=== PATIENT | female | born 1995 | race Caucasian/White ===

== ENCOUNTER 2021-08-12 16:32 | Emergency (ER) | payer OTHER, SELFPAY ==
[2021-08-12 16:44] VITALS: BP 111/76; PULSE 87; RESP 18; TEMP 36.7; O2SAT 98; BMI 31.5
--- NOTE | 2021-08-12 17:17 | ED_ITS ---
HPI - Eye Problem General: Chief complaint: Eye Problems Stated complaint: chemical in right eye Time Seen by Provider: 08/12/21 17:10 History of Present Illness: Presents for a work comp injury. Patient had some splashed up in her right eye while at work today she said it could have been a child spit are chemical. She did flush her eye for 5 to 10 minutes with water and her eyes feeling much better now. Implosion instructed come here to be checked out. Associated symptoms: Denies fever(s), headache(s), nausea or vomiting Review of Systems Narrative: Possible child spit are chemical splashed into her right eye earlier today at work. Patient irrigated her eye she feels much better now. Const: Denies: fever(s), chills or body aches Eyes: Reports: eye discomfort (eydiscomfort is now gone, patient irrigated I for 5 to 10 minutes with wate) ENMT: Denies: throat pain Card: Denies: chest pain Resp: Denies: dyspnea GI: Denies: abdominal pain, nausea or vomiting Skin/Breast: Denies: rash Neuro: Denies: headache(s) Psych: Denies: depression or suicidal ideation PFSH ED PFSH: Social History Smoking and tobacco status: never smoked Alcohol intake: current Physical Exam Const: COMMON NORMALS: no acute distress and patient oriented x3 Eye: COMMON NORMALS: Equal, round and reactive pupils present and conjunctivae normal EYELID: eyelids normal CONJUNCTIVA: Yes conjunctivae normal SCLERA: sclerae normal PUPIL: Yes Equal, round and reactive pupils present Resp: COMMON NORMALS: normal respiratory effort Neuro: COMMON NORMALS: patient oriented x3 Course Vital Signs: Vital signs: Vital Signs Temperature 98.0 F 08/12/21 16:44 Pulse Rate 87 08/12/21 16:44 Respiratory Rate 18 08/12/21 16:44 Blood Pressure 111/76 08/12/21 16:44 Pulse Oximetry 98 08/12/21 16:44 MDM - Eye Problem Medical Decision Making Possible chemical exposure are spit to the right eye while at work today. This is a work comp and work comp form was filled out. There was no evidence of any damage to the eye patient is not having problems seeing and then there is no redness. Patient did irrigate eye at work for 5 to 10 minutes with water. Patient has no complaints of discomfort presently. Discharge Plan Discharge Patient Disposition: Home Clinical Impression: Chemical exposure of eye Condition: Stable Prescriptions: New Zaditor 0.025 % (0.035 %) drops 1 drp ophthalmic (eye) BID Qty: 5 0RF Rx Instructions: administer at least 8 hours apart No Action bupropion HCl 75 mg tablet 75 mg PO BID 25 Days Qty: 50 1RF Rx Instructions: first 2 weeks take once daily, then can increase to 1 morning and 1 aft ernoon. Discharge Orders: Discharge ED (Routine); Ordered 08/12/21 Ordered By: Korey Mccarthy Referrals: Erum Nam MD [Primary Care Provider] - Discharge Diet: Usual diet Discharge Activity: Resume usual activity Patient Instructions: Chemical Eye Garcia (ED) Activity Restrictions/Additional Instructions: Follow-up with your work comp provider as necessary. Coding Level of Care Code ED Jockey Room Custodian for Meghan Burton
== END 2021-08-12 17:28 | disposition home or self-care (01) ==
PROVIDERS: Emergency Provider Nurse Practitioner Family; PCP Family Medicine
DX: Z77.098 Contact with and (suspected) exposure to other hazardous, chiefly nonmedicinal, chemicals (principal)
CPT/HCPCS: 99281

== ENCOUNTER 2022-05-20 14:45 | Outpatient (CLI) | payer BC, MEDICAID, SELFPAY ==
--- NOTE | 2022-05-20 | US_ITS ---
WS: [id number] EARLY OBSTETRICAL ULTRASOUND (<14 WEEKS). HISTORY: NORMAL ENCOUNTER 1ST TRIMESTER COMPARISON: None available. Single intrauterine gestational sac is identified. Cardiac activity at 118 BPM. Creswell-rump length ramses sures 0.7 cm which corresponds to a gestation of 6w3d. Normal-appearing yolk sac and amnion demonstra ronaldo. No subchorionic hemorrhage. No free fluid. Normal size ovaries with no mass. US/US OB <= 14 weeks fetus [id number] IMPRESSION: 1. Single intrauterine gestation of 6 weeks 6 days with an EDC of 01/07/2023. 2. Normal cardiac activity.
== END 2022-05-20 14:46 | disposition home or self-care (01) ==
LOC: RAD 14:51
PROVIDERS: PCP Family Medicine; Visit Provider Family Medicine
DX: Z34.01 Encounter for supervision of normal first pregnancy, first trimester (principal)
CPT/HCPCS: 76801

== ENCOUNTER 2022-08-20 14:45 | Outpatient (CLI) | payer BC, MEDICAID, SELFPAY ==
--- NOTE | 2022-08-20 15:01 | US_ITS ---
WS: [id number] OBSTETRICAL ULTRASOUND COMPLETE HISTORY: ANATOMY CHECK COMPARISON: 05/20/2022 Single intrauterine gestation in breech presentation. Cervix is Closed and normal length. Cervical length is 4.9 cm. Normal amount of amniotic fluid surrounds the fetus. Placenta: Posterior, no previa or abruption. Placenta grade 1 Heart: 129 BPM. Four chambers are identified. RIGHT and LEFT outflow tracts are unremarkable. Anatomy: Intracranial structures and spine are normal. kidneys, stomach and urinary bladd er are unremarkable. Abdominal wall, three-vessel cord and cord insertion site are normal. 4 extremities are present. profile: Unremarkable. Gender: Male. measurements: BPD = 4.6 cm = 20w0d; HC = 17.7 cm = 20w1d; AC = 15.1 cm = 20w2d; FL = 3.3 cm = 20w2d; EFW: 346 g. Not available. Biometry is internally concordant. AGA by ultrasound: 20w1d GREYSON by ultrasound: 01/06/2023 US/US OB >= 14 weeks fetus [id number] IMPRESSION: 1. Single intrauterine gestation of 20w1d with an GREYSON of 01/06/2023. Appropria te growth since the first trimester ultrasound. 2. Unremarkable screening survey of anatomy.
== END 2022-08-20 14:46 | disposition home or self-care (01) ==
LOC: RAD 14:46
PROVIDERS: PCP Family Medicine; Visit Provider Family Medicine
DX: Z34.92 Encounter for supervision of normal pregnancy, unspecified, second trimester (principal); Z3A.20 20 weeks gestation of pregnancy
CPT/HCPCS: 76805

== ENCOUNTER 2022-11-30 09:44 | Outpatient (CLI) | payer BC, MEDICAID, SELFPAY ==
--- NOTE | 2022-11-30 09:51 | US_ITS ---
WS: [id number] LIMITED OBSTETRICAL ULTRASOUND HISTORY: GROWTH CHECK/UTERINE SIZE-DATE DISCREPANCY-3RD TRIMESTER COMPARISON: 08/20/2022 and 05/20/2022 Presentation: Vertex. Cervix: Not imaged. Placenta: Anterior and fundal, no previa or abruption. Grade: 1 HEART: FHR of 122 BPM. measurements: BPD = 8.6 cm = 34w5d; 58th percentile HC = 30.7 cm = 34w2d; 14th percentile AC = 30.9 cm = 34w6d; 68th percentile FL = 6.8 cm = 35w0d; 55th percentile DIANA: 7.7 cm, single deep vertical pocket 3.1 cm. EFW: 2520 g; 67th percentile AGA by ultrasound: 34w5d GREYSON by ultrasound: 01/06/2023 US/[place] [id number] IMPRESSION: 1. Single intrauterine gestation of 34 weeks 5 days with an EDC of 01/06/2023. G rowth of the fetus appears appropriate since the first trimester ultrasound of 05/20/2022. 2. No growth restriction is evident. 3. Normal amniotic fluid. 4. Grade 1 placenta.
== END 2022-11-30 09:45 | disposition home or self-care (01) ==
PROVIDERS: PCP Family Medicine; Visit Provider Family Medicine
DX: O26.843 Uterine size-date discrepancy, third trimester (principal); Z3A.34 34 weeks gestation of pregnancy
CPT/HCPCS: 76816

== ENCOUNTER 2022-12-29 19:20 | Outpatient (CLI) | payer BC, MEDICAID, SELFPAY ==
[2022-12-29 19:30] VITALS: BMI 33.7
[2022-12-29 19:45] VITALS: BP 134/82; PULSE 78; RESP 17; TEMP 36.9
[2022-12-29 19:47] VITALS: RESP 17
[2022-12-29 19:55] LABS: Nitrazine Paper, PH Inconclusive
[2022-12-29 19:58] LABS: Actim Prom Negative
[2022-12-29 20:15] VITALS: BP 132/83; PULSE 93
== END 2022-12-29 20:35 | disposition home or self-care (01) ==
LOC: OPOB 19:24 → OBGYN 19:26
PROVIDERS: PCP Family Medicine; Visit Provider Family Medicine
DX: O26.899 Other specified pregnancy related conditions, unspecified trimester (principal); N89.8 Other specified noninflammatory disorders of vagina; Z3A.00 Weeks of gestation of pregnancy not specified
CPT/HCPCS: 59025; 83986; 84112; 99211

== ENCOUNTER 2023-01-14 11:05 | Outpatient (CLI) | payer BC, MEDICAID, SELFPAY ==
[2023-01-14] VITALS (7 sets, daily range): BP systolic 134–164; BP diastolic 83–98; PULSE 77–93; BMI 34.3
[2023-01-14 13:17] LABS: Basophils # 0.1 10^3/uL (0.0-0.1); Basophils % 0.4 %; Eosinophils % 0.3 %; Hematocrit 40.7 % (36-47); Lymphocytes # 2.3 10^3/uL (0.8-4.8); Lymphocytes % 16.7 %; Mean Corpuscular HGB Conc 33.2 g/dL (30-55); Mean Corpuscular Hemoglobin 30.2 pg (27-33); Mean Corpuscular Volume 91.1 fl (85-98); Mean Platelet Volume 10.5 fL (7.4-10.4); Monocytes # 0.8 10^3/uL (0.2-0.9); Monocytes % 5.9 %; Neutrophils # 10.57 10^3/uL (1.8-7.7); Neutrophils % 75.6 %; Nucleated Red Blood Cells % 0 %; Platelet Count 249 10^3/cmm (157-399); Red Blood Count 4.47 10^6/uL (3.85-5.65); Red Cell Distribution Width 13.7 % (12.1-15.1); White Blood Count 13.99 10^3/uL (3.29-11.43)
[2023-01-14 13:37] LABS: Bilirubin Urine Neg (Negative); Blood Urine Neg (Negative); Glucose Urine UA Norm (Normal); Ketones Urine Negative (Negative); Leukocyte Esterase Urine Negative (Negative); Nitrate Urine Negative (Negative); Protein Urine Neg (Negative); Urine Appearance SL Hazy (CLEAR); Urine Color Yellow (Yellow); Urobilinogen Urine Norm (Negative); pH Urine 7 (5-7)
[2023-01-14 13:38] LABS: Add Urine Culture? No; Bacteria Urine TRACE /hpf; RBC Urine 0-4 /hpf (0-2); Squamous Epithelial Cell Urine 0-4 /hpf (0-5); WBC Urine 0-4 /hpf (0-5)
[2023-01-14 13:40] LABS: UPRO/UCREAT Ratio 0.13 mg/mg CR; Urine Creatinine 47 mg/dL (28-217); Urine Protein Random 6 mg/dL
[2023-01-14 13:42] LABS: Alanine Aminotransferase 7 U/L (0-33); Albumin Level 3.5 g/dL (3.5-5.2); Alkaline Phosphatase 154 U/L (35-105); Anion Gap 17.9 (5-19); Aspartate Amino Transferase 12 U/L (0-32); Blood Urea Nitrogen 9 mg/dL (6-20); Calcium 9.4 mg/dL (8.5-10.5); Carbon Dioxide 19 mmol/L (22-29); Chloride 107 mmol/L (98-107); Glomerular Filtration Rate 145.9 mL/min (90-130); Glucose 70 mg/dL (65-115); Osmolality Calculated 285 mOsm/kg (285-295); Potassium 4.9 mmol/L (3.5-5.1); Sodium 139 mmol/L (136-145); Total Bilirubin 0.2 mg/dL (0.15-1.2); Total Protein 6.5 g/dL (6.6-8.7); Uric Acid 5.2 mg/dL (2.4-5.7)
== END 2023-01-14 14:20 | disposition home or self-care (01) ==
LOC: OPOB 11:06 → OBGYN 11:07
PROVIDERS: PCP Family Medicine; Visit Provider Family Medicine
DX: O48.0 Post-term pregnancy (principal); Z3A.00 Weeks of gestation of pregnancy not specified
CPT/HCPCS: 36415; 59025; 80053; 81001; 82570; 84156; 84550; 85025; 99211

== ENCOUNTER 2023-01-14 21:08 | Inpatient (IN) | payer BC, MEDICAID, SELFPAY ==
[2023-01-14] VITALS (11 sets, daily range): BP systolic 124–165; BP diastolic 77–102; PULSE 75–86; TEMP 36.5; BMI 34.3
[2023-01-14] MEDS: miSOPROStol 100 mcg tablet 25 MCG VAGINAL (21:29)
--- NOTE | 2023-01-14 21:29 | P.HP_ITS ---
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 PMHx includes depression/anxiety- not currently on medications. course significant for recovery from COVID in this and O negative blood type- rhogam 10/22/22. Denies cramping/contractions, LOF, vaginal bleeding. Good movement. care was good and starting in first trimester. Present for NST earlier today and noted to have elevated BP. Prior to today she has not had other elevated BP this . She denies MELLO, changes in vision, RUQ pain, or increase in LE edema. Labs Blood type OB HPI: 0 (-) negative Rubella: Immune RPR: Negative GBS: Negative HBsAG: Negative Other Lab Information: Rhogam 10/22/22. Antibody screen negative x 2. HIV neg Hep C Ab neg GC/Chlam negative UCx wnl Pap smear 07/11/20 NILM First trimester H/H 14.5/42.1 1 hr GTT passed 119 3rd trimester H/H 12.3/35.2 Review of Systems Const: Denies: fever(s) or chills Card: Denies: chest pain, palpitations or dyspnea on exertion Resp: Denies: dyspnea or productive cough : Denies: dysuria or genital lesions Skin/Breast: Denies: rash or pruritus Psych: Reports: anxiety Medications/Allergies Home Medications Medication Instructions Recorded Confirmed Last Taken Type bupropion HCl 75 mg tablet 75 mg PO BID 30 days #60 tabs 09/03/21 05/13/22 Unknown Rx fluticasone propionate 50 1 spray intranasal DAILY #16 grams 05/13/22 05/13/22 Unknown Rx mcg/actuation nasal spray,suspension (Allergy Relief (fluticasone)) Allergies Allergy/AdvReac Type Severity Reaction Status Date / Time clindamycin Allergy RASH Verified 05/13/22 11:15 sulfamethoxazole Allergy RASH Verified 05/13/22 11:15 [From Bactrim] trimethoprim [From Bactrim] Allergy RASH Verified 05/13/22 11:15 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 MATERIAL FLOW ENGINEER PFSH: Medical History (Updated 01/14/23 @ 21:44 by Trinh Morris DO) Depression Psychiatric care Social History Smoking and tobacco status: never smoked Alcohol intake: current Substance/Drug Use: never History History History 1 Term 0 0 Miscarriages/Ectopic 0 Living Children 0 Vitals/I&O/Wt Last Vital Signs Temp 97.7 F 01/14/23 20:08 Pulse 83 01/14/23 21:18 BP 124/77 01/14/23 21:18 Weight last 48 hrs Weight 200 lb Physical Exam Const: COMMON NORMALS: no acute distress, healthy appearing and alert Resp: COMMON NORMALS: normal respiratory effort and clear to auscultation bilaterally Cardio: COMMON NORMALS: regular rate, regular rhythm, S1 normal heart sound present, S2 normal heart sound present and No murmurs present (Cardio) GI: OTHER: gravid and fundal height appropriate for gestational age Extremity: NARRATIVE EXTREMITY EXAM: Trace LE pitting edema A&P Assessment and plan (1) Encounter for induction of labor: (2) Gestational hypertension: Plan 27yo at 40w6d presenting for induction of labor due to post dates. Found to have gestational hypertension newly diagnosed today- PIH labs wnl. Admit for induction. GBS negative- no GBS ppx indicated. Plan for initial cytotec dose-risks and benefits discussed with patient and she agrees to proceed- re-evaluate in 4 hours and as indicated. Intermittent EFM provided Category 1 FHT. Fentanyl protocol, epidural when desired. Attestations Medical Necessity Statement*: [facility] stay will require greater than 2 midnights for induction, labor and delivery, and care. Coding Level of Care Code Acute Code for Chg Fwd Diagnoses Encounter for induction of labor Z34.90 Gestational hypertension O13.9
[2023-01-14 21:32] LABS: Basophils # 0.1 10^3/uL (0.0-0.1); Basophils % 0.5 %; Eosinophils # 0.1 10^3/uL (0.0-0.8); Eosinophils % 0.4 %; Hematocrit 40.2 % (36-47); Lymphocytes # 2.8 10^3/uL (0.8-4.8); Lymphocytes % 18.3 %; Mean Corpuscular HGB Conc 32.6 g/dL (30-55); Mean Corpuscular Hemoglobin 30.3 pg (27-33); Mean Corpuscular Volume 92.8 fl (85-98); Monocytes % 6.7 %; Neutrophils # 11.26 10^3/uL (1.8-7.7); Neutrophils % 73.1 %; Nucleated Red Blood Cells % 0 %; Platelet Count 254 10^3/cmm (157-399); Red Blood Count 4.33 10^6/uL (3.85-5.65); Red Cell Distribution Width 13.8 % (12.1-15.1); White Blood Count 15.39 10^3/uL (3.29-11.43)
[2023-01-15] VITALS (123 sets, daily range): BP systolic 104–181; BP diastolic 52–104; PULSE 67–115; TEMP 36.6–37.8; O2SAT 98–100
[2023-01-15] MEDS: miSOPROStol 100 mcg tablet 25 MCG VAGINAL (01:37)
[2023-01-15] MEDS: lactated ringers 1,000 ML 999 ML IV (06:30)
[2023-01-15] MEDS: ROPivacaine syringe 100 MG/50 ML SYRINGE 10 MG EPIDURAL ×3 (07:29→17:00)
[2023-01-15] MEDS: lactated ringers 1,000 ML 125 ML IV (07:30)
--- NOTE | 2023-01-15 07:52 | ANES.PREANE2 ---
Pre-Anesthetic Assessment Height/Weight: Height 1.63 m Weight 90.718 kg Temp Pulse BP Pulse Ox O2 Del Method 97.9 F 82 148/96 98 Room Air 01/15/23 06:34 01/15/23 07:49 01/15/23 07:49 01/15/23 07:49 01/14/23 20:50 Familial anesthetic complications: None Was Beta Kalpana taken within 24 hours: N/A Was Clonidine taken within 24 hours: N/A Social No alcohol and No tobacco Exam alert, oriented x 3, clear to auscultation bilaterally and regular rate & rhythm Airway Submandibular: within normal limits Cervical ROM: within normal limits Mallampati: Class II Dentition: full Anesthetic Plan ASA status: 2 Anesthesia: General Medications/Allergies Home Medications Medication Instructions Recorded Confirmed Last Taken Type bupropion HCl 75 mg tablet 75 mg PO BID 30 days #60 tabs 09/03/21 05/13/22 Unknown Rx fluticasone propionate 50 1 spray intranasal DAILY #16 grams 05/13/22 05/13/22 Unknown Rx mcg/actuation nasal spray,suspension (Allergy Relief (fluticasone)) Allergies Allergy/AdvReac Type Severity Reaction Status Date / Time clindamycin Allergy RASH Verified 05/13/22 11:15 sulfamethoxazole Allergy RASH Verified 05/13/22 11:15 [From Bactrim] trimethoprim [From Bactrim] Allergy RASH Verified 05/13/22 11:15 Current Medications Generic Name Dose Route Start Last Admin Trade Name Freq PRN Reason Stop Dose Admin Lactated Ringer's 1,000 mls @ 999 mls/hr 01/14/23 20:16 01/15/23 07:30 Lactated Ringers IV 125 mls/hr .Q1H1M PRN Administration Per L&D Rescitation Protocol Lactated Ringer's 1,000 mls @ 999 mls/hr 01/15/23 05:54 01/15/23 07:30 Lactated Ringers IV Infused .Q1H1M PRN Infusion See label comments Ropivacaine 100 mg in 50 mls @ 10 mls/hr 01/15/23 06:00 01/15/23 07:29 Naropin Syringe EPIDURAL 10 mls/hr .Q5H VILMA Administration PFSH Anesthesia Medical History (Updated 01/14/23 @ 21:44 by Trinh Morris DO) Depression Psychiatric care Social History Smoking and tobacco status: never smoked Alcohol intake: current Substance/Drug Use: never Female Reproductive History : 1 Data Anesthesia 01/14/23 20:00 Short CBC 01/14/23 Range/Units 20:00 WBC 15.39 H (3.29-11.43) 10^3/uL Hgb 13.10 (11.27-16.99) g/dL Hct 40.2 (36-47) % MCV 92.8 (85-98) fl Plt Count 254 (157-399) 10^3/cmm Neut % (Auto) 73.1 % Neut # (Auto) 11.26 H (1.8-7.7) 10^3/uL Cardiac Studies: No Data to Display
--- NOTE | 2023-01-15 07:53 | ANES.PROC ---
Anesthesia Procedures Procedure/Date: 01/15/23 Epidural: Time Out Performed: Yes Consents Signed: Procedure Consent Consent: requested by attending/covering physician, from patient, risks and benefits reviewed and patient agrees to proceed Lumbar Level: L3-L4 Epidural position: sitting Epidural procedure: sterile prep of area, 1% lidocaine to numb the area, 18 g needle, neg for paresthesia, test dose given, 1.5% xylocaine 1:200k epi, 0.2% Ropivacaine bolus ml (5mls), placed PCEA, no systemic response, sterile dressing applied and 0.2% Ropiavacaine @ mls/hr (10) Additional Comments: LIA at 5cm, cath at 10cm
[2023-01-15] MEDS: dextrose 5%-lactated ringers 1,000 ML 125 ML IV ×3 (08:58→17:02)
[2023-01-15] MEDS: oxytocin 30 UNIT/500 ML BAG IV (09:48)
[2023-01-15] MEDS: ondansetron 2 mg/ML SDV 2 mL 4 MG IVP (19:24)
--- NOTE | 2023-01-15 19:30 | PM.OBGYPN ---
RADIOLOGY SERVICES MANAGER Subjective Subjective: Interval history: Seen and evaluated multiple times throughout the day. Seen in AM after patient received epidural and starting to take effect. At this time she was on pitocin 6 units with SVE 4/60/-3 Seen at approx noon and AROM performed after discussion or risks and benefits- patient and baby tolerated procedure well. Expressed small amount of clear fluid. SVE following AROM 4.5/80/-3. Seen again at approx 7:30 pm. At this time patient noted epidural was becoming less effective and expressing fatigue. SVE at this time 595/-2. Pitocin at 20 units since approx 4pm. Labor: Station: +2 Amniotic Membrane Status: Ruptured Monitor Mode: Palpation Contraction Pattern: Irregular Status: Category I Vitals/I&O/Wt Last Vital Signs Temp 99.5 F 01/15/23 19:32 Pulse 110 H 01/16/23 10:17 BP 167/93 01/16/23 10:17 Pulse Ox 98 01/15/23 08:54 O2 Del Method Room Air 01/14/23 20:50 01/15/23 01/16/23 01/16/23 22:59 06:59 14:59 Intake Total 1113.334 / 2199.784 1150 / 3349.784 1496.05 / 1496.05 Output Total 1250 / 1250 600 / 1850 Balance -136.666 / 949.784 550 / 5067.628 0647.05 / 1496.05 Weight last 48 hrs Weight 200 lb Physical Exam Const: COMMON NORMALS: no acute distress, healthy appearing and alert OTHER: in pain with contractions. Resp: COMMON NORMALS: normal respiratory effort and clear to auscultation bilaterally AUSCULTATION: clear to auscultation bilaterally Cardio: COMMON NORMALS: regular rate, regular rhythm, S1 normal heart sound present, S2 normal heart sound present and No murmurs present (Cardio) RATE: regular rate RHYTHM: regular rhythm HEART SOUNDS: S1 normal heart sound present and S2 normal heart sound present GI: OTHER: gravid and fundal height appropriate for gestational age Extremity: NARRATIVE EXTREMITY EXAM: Trace LE pitting edema Neuro: SENSORIUM/ORIENTATION: Yes alert Urinary Catheter Management: H[place]away: Cath Placed During This Visit: yes, but has since been removed by the nurse Reason for Continuing Indwelling Catheter: Decision to DC Catheter Urinary Catheter Date of Insertion: 01/15/23 Urinary Catheter Time of Insertion: 08:44 Date Urinary Catheter Removed: 01/16/23 Time Urinary Catheter Discontinued: 05:20 Data 01/14/23 20:00 A&P Assessment and plan (1) Encounter for induction of labor: (2) Gestational hypertension: Plan 27yo at 41w0d admitted for induction of labor due to post dates. Found to have gestational hypertension newly diagnosed on admission- BPs have been mild range- approx 2 severe range BPs non-consecutive and appear associated with patient pain. Category 1 FHT. Continue current plan of care- encouraged frequent position changes. Reassess at approx 11:30 pm unless indicated earlier. Attestations Medical Necessity Statement*: Lili De Souza's hospital stay will require greater than 2 midnights for induction, labor and delivery, and care. Coding Level of Care Code Acute Code for Chg Fwd Diagnoses Encounter for induction of labor Z34.90 Gestational hypertension O13.9
[2023-01-15] MEDS: ROPivacaine syringe 100 MG/50 ML SYRINGE 13 MG EPIDURAL ×2 (20:34→23:56)
[2023-01-16] VITALS (58 sets, daily range): BP systolic 107–167; BP diastolic 51–102; PULSE 78–121; RESP 17–19; TEMP 36.6–36.8; O2SAT 96–98
[2023-01-16] MEDS: dextrose 5%-lactated ringers 1,000 ML 125 ML IV ×2 (01:05→09:13)
[2023-01-16] MEDS: ROPivacaine syringe 100 MG/50 ML SYRINGE 13 MG EPIDURAL ×3 (02:53→09:13)
--- NOTE | 2023-01-16 09:08 | PC.NURSE ---
straight cath by Dr Morris. 100ml urine out
[2023-01-16] MEDS: miSOPROStol 200 mcg Tablet 800 MCG PR (09:38)
[2023-01-16] MEDS: carboprost tromethamine 250 mcg/mL Amp IM (09:45)
[2023-01-16] MEDS: ondansetron 2 mg/ML SDV 2 mL 4 MG IVP (09:56)
[2023-01-16] MEDS: metoclopramide 5 mg/mL SDV 2 mL 10 MG IV (10:11)
[2023-01-16] MEDS: oxytocin 30 UNIT/500 ML BAG 999 UNIT IV (10:11)
--- NOTE | 2023-01-16 10:15 | PC.NURSE ---
straight cath by Dr Morris. 250mL urine out
--- NOTE | 2023-01-16 10:20 | PM.DELIVERY ---
Delivery Note: Date of delivery: January 16, 2023 Pre-delivery diagnoses: Post-dates gestational age Gestational hypertension Post-delivery diagnoses: Term delivery of male Post- hemorrhage Gestational hypertension Procedure: Spontaneous vaginal delivery Delivering Physician: Trinh Morris DO Estimated blood loss (mL): 600 Pre-Delivery Course: Admitted for induction on labor on 01/14/23 with SVE approx 1.5/50/-3.. Given 2 doses cytotec q4hrs with progression to approx 3/60/-3. At this time patient requested epidural and after obtained started on pitocin moderate dose in AM on 01/15/23. Progressed slowly to 4/80/-3 and AROM with clear fluid performed at approx noon on 01/15/23 with SVE 4.5/80/-3 following AROM. On next SVE noted to have light meconium. Patient progressed slowly to complete on 01/16/23. FHT overall Category I throughout with occasional Category II FHT due to minimal variability that resolved with re-positioning. Delivery: Patient progressed to complete. Noted to be LOP on exam and so pushing initiated on hands and knees and changed positions to side pushing on either side. Patient pushed with adequate effort and progressed from +2 to +3 station. After approx 1 hour of pushing patient expressed fatigue and desire to reassess. At this time I was called away from bedside for an emergency at approx 6:40am and pushing break taken. On return at approx 7:10am discussed options for proceeding with patient and partner. Discussed attempt to turn from OP to OA, continued pushing, vaccum attempt, or . After discussion of risks and benefits patient decided to attempt turning from OP to OA. OP position confirmed by bedside US. back-up Dr. Khalil informed of patient status as well. Patient placed in lithotomy position. At this time attempt of manual rotation from OP to OA completed during one contraction. FHT noted to become bradycardic with slow return to baseline and decision was made to stop manual rotation attempt. At this time decision to continue pushing was made and assessment of position with bedside US was not attempted. Patient pushed with adequate effort. Head delivered in SAGAR position, no nuchal cord was present. Shoulders and rest of body delivered without difficulty with adequate epidural anesthesia. Noted thick meconium at time of delivery. Mouth and nares bulb suctioned. placed on maternal abdomen. Cord clamped and cut after 1 minute delay. Placenta spontaneously delivered and intact. Pitocin started. Fundus was noted to be boggy with gushes of bleeding on fundal massage. Cytotec 800mcg placed rectally. Bleeding improved following. The vagina and cervix were inspected and bilateral vaginal sulcus 1st degree lacerations as well as small periurethral abrasion (non-bleeding) were noted. Bilateral 1st degree lacerations repaired with 3-0 Vicryl suture. During repair noted renewed bleeding and hemabate 250mcg given as well as fundal massage again initiated with improved bleeding. Following repair lower uterine segment swept free of clots and noted to have continued steady trickle of bleeding. At that time 1g transexamic acid given. Fundus was again noted to be firm with fundal massage and bleeding improved following. Noted small area of bleeding in left vaginal sulcus repair and figure 8 suture with 3-0 Vicryl placed for hemostasis with adequate hemostatic effect noted following. Male born at 9:28 am with 8/9 weighing 3745g and measuring 21.5 in length Placenta noted to be intact with centrally inserted umbilical cord and 3 vessel cord. Complications: Maternal PPH with EBL 600mL and stable vital signs throughout Infant none History History History 1 Term 1 0 Miscarriages/Ectopic 0 Living Children 1 Coding Level of Care Code Acute Code for Chg Fwd Diagnoses
[2023-01-16] MEDS: loperamide 2 mg Capsule 4 MG PO (11:20)
--- NOTE | 2023-01-16 11:50 | ANE.PACU2 ---
Inpatient post-anesthesia follow up: Airway intact: Yes Vital signs: Temperature 99.5 F Pulse Rate 93 Respiratory Rate Blood Pressure 152/94 Pulse Oximetry 98 Oxygen Delivery Me thod Room Air Oxygen Flow Rate Fraction of Inspir ed Oxygen Hydration adequate: Yes Nausea and vomiting: No Pain level: 2 Mental status: Baseline
[2023-01-16] MEDS: benzocaine-menthol 78 gm Canister 1 SPRAY TOPICAL (15:09)
[2023-01-16] MEDS: lanolin oint 7 gm 1 APPLIC TOPICAL (15:09)
[2023-01-16] MEDS: ibuprofen 800 mg tablet PO ×2 (15:10→20:43)
[2023-01-16 22:45] LABS: Hematocrit 32.4 % (36-47); Mean Corpuscular Hemoglobin 30.9 pg (27-33); Mean Platelet Volume 10.3 fL (7.4-10.4); Platelet Count 234 10^3/cmm (157-399); Red Blood Count 3.56 10^6/uL (3.85-5.65); Red Cell Distribution Width 13.9 % (12.1-15.1); White Blood Count 27.47 10^3/uL (3.29-11.43)
[2023-01-16 23:22] LABS: Urine Creatinine 105 mg/dL (28-217)
[2023-01-16 23:23] LABS: Urine Protein Random 21 mg/dL
[2023-01-16 23:25] LABS: Alanine Aminotransferase 8 U/L (0-33); Albumin Level 2.9 g/dL (3.5-5.2); Alkaline Phosphatase 133 U/L (35-105); Aspartate Amino Transferase 19 U/L (0-32); Blood Urea Nitrogen 14 mg/dL (6-20); Carbon Dioxide 18 mmol/L (22-29); Chloride 108 mmol/L (98-107); Globulin 2.7 g/dL (1.3-4.6); Glomerular Filtration Rate 58.7 mL/min (90-130); Glucose 87 mg/dL (65-115); Osmolality Calculated 284 mOsm/kg (285-295); Sodium 137 mmol/L (136-145); Total Bilirubin 0.3 mg/dL (0.15-1.2); Total Protein 5.6 g/dL (6.6-8.7)
[2023-01-17 04:00] VITALS: BP 112/61; PULSE 71; RESP 16; TEMP 37; O2SAT 98
[2023-01-17 09:13] VITALS: BP 124/70; PULSE 82; RESP 18; TEMP 36.6
[2023-01-17] MEDS: prenatal vitamin Capsule 1 CAP PO (09:46)
[2023-01-17] MEDS: docusate sodium 100 mg Capsule PO (09:47)
[2023-01-17] MEDS: ibuprofen 800 mg tablet PO (09:47)
--- NOTE | 2023-01-17 14:01 | P.DS_ITS ---
Discharge Providers ONCOLOGY COORDINATOR Date of Admission: 01/14/23 21:08 Date of Discharge: 01/17/23 Attending Provider at Admission: Trinh Morris DO Attending Provider at Discharge: Trinh Morris DO Primary Care Provider: Erum Nam MD Diagnoses at Discharge Discharge Diagnosis (1) Gestational hypertension: Status: Acute (2) Spontaneous vaginal delivery: Status: Acute Reason for Visit Reason for Visit: IOL Hospital Course Hospital Course Pre-Delivery Course:?? Admitted for induction on labor on 01/14/23 with SVE approx 1.5/50/-3.. Given 2 doses cytotec q4hrs with progression to approx 3/60/-3. At this time patient requested epidural and after obtained started on pitocin moderate dose in AM on 01/15/23. Progressed slowly to 4/80/-3 and AROM with clear fluid performed at approx noon on 01/15/23 with SVE 4.5/80/-3 following AROM. On next SVE noted to have light meconium. Patient progressed slowly to complete on 01/16/23. FHT overall Category I throughout with occasional Category II FHT due to minimal variability that resolved with re-positioning. Delivery:?? Patient progressed to complete. Noted to be LOP on exam and so pushing initiated on hands and knees and changed positions to side pushing on either side. Patient pushed with adequate effort and progressed from +2 to +3 station. After approx 1 hour of pushing patient expressed fatigue and desire to reassess. At this time I was called away from bedside for an emergency at approx 6:40am and pushing break taken. On return at approx 7:10am discussed options for proceeding with patient and partner. Discussed attempt to turn from OP to OA, continued pushing, vaccum attempt, or . After discussion of risks and benefits patient decided to attempt turning from OP to OA. OP position confirmed by bedside US. back-up Dr. Khalil informed of patient status as well. Patient placed in lithotomy position. At this time attempt of manual rotation from OP to OA completed during one contraction. FHT noted to become bradycardic with slow return to baseline and decision was made to stop manual rotation attempt. At this time decision to continue pushing was made and assessment of position with bedside US was not attempted. Patient pushed with adequate effort. Head delivered in SAGAR position, no nuchal cord was present. Shoulders and rest of body delivered without difficulty with adequate epidural anesthesia. Noted thick meconium at time of delivery. Mouth and nares bulb suctioned. Infant placed on maternal abdomen. Cord clamped and cut after 1 minute delay.? Placenta spontaneously delivered and intact. Pitocin started.? Fundus was noted to be boggy with gushes of bleeding on fundal massage. Cytotec 800mcg placed rectally. Bleeding improved following. The vagina and cervix were inspected and bilateral vaginal sulcus 1st degree lacerations as well as small periurethral abrasion (non-bleeding) were noted. Bilateral 1st degree lacerations repaired with 3-0 Vicryl suture. During repair noted renewed bleeding and hemabate 250mcg given as well as fundal massage again initiated with improved bleeding. Following repair lower uterine segment swept free of clots and noted to have continued steady trickle of bleeding. At that time 1g transexamic acid given.? Fundus was again noted to be firm with fundal massage and bleeding improved following. Noted small area of bleeding in left vaginal sulcus repair and figure 8 suture with 3-0 Vicryl placed for hemostasis with adequate hemostatic effect noted following. Male born at 9:28 am with 8/9 weighing 3745g and measuring 21.5 in length Placenta noted to be intact with centrally inserted umbilical cord and 3 vessel cord. Complications: Maternal PPH with EBL 600mL and stable vital signs throughout ? Infant none course: Patient underwent on 01/16/2023. Following delivery patient ambulated well, tolerated a normal diet without nausea or vomiting. Pain was well controlled on PO medications, combination of breast and bottlefeeding, no leg/calf pain, no calf swelling and no increase in leg swelling, normal urination, passing gas. Vaginal bleeding thin lochia and decreasing. labs significant for hemoglobin of 11 from hemoglobin of 13 on admission. Also noted to have elevated white blood cell count and minimally elevated creatinine . Additionally she has O- blood type and infant found to have O+ blood type?RhoGAM given per RN prior to discharge. She has been afebrile throughout labor and course. Noted to have elevated blood pressures from time of admission to approximately 2 hours . [address] [facility] labs showed a normal protein creatinine ratio and she was noted to have normal blood pressures since approximately 2 hours . I have discussed her previously elevated blood pressures and labs with her and she plans to check her blood pressure once a day at home. Discussed parameters for which to seek medical attention. Follow-up planned for 2 and 6 weeks . Warning signs for endometritis, pre-eclampsia, DVT/PE, mastitis were reviewed, discussed additional warning signs including increased vaginal bleeding, worsening abdominal pain for which to seek medical attention. Pelvic rest and activity precautions reviewed as well. She is discharged on 01/17/2023 in stable condition. Information Peripartum Data: Infant Delivery Method: Vaginal Physical Exam Const: COMMON NORMALS: no acute distress, healthy appearing and alert Resp: COMMON NORMALS: normal respiratory effort and clear to auscultation bilaterally AUSCULTATION: clear to auscultation bilaterally Cardio: COMMON NORMALS: regular rate, regular rhythm, S1 normal heart sound present, S2 normal heart sound present and No murmurs present (Cardio) RATE: regular rate RHYTHM: regular rhythm HEART SOUNDS: S1 normal heart sound present and S2 normal heart sound present GI: OTHER: Uterine fundus is firm and at the umbilicus Extremity: NARRATIVE EXTREMITY EXAM: 1+ LE pitting edema bilaterally, no calf tenderness Neuro: SENSORIUM/ORIENTATION: Yes alert Urinary Catheter Management: [place]: Cath Placed During This Visit: yes, but has since been removed by the nurse Reason for Continuing Indwelling Catheter: Decision to DC Catheter Urinary Catheter Date of Insertion: 01/15/23 Urinary Catheter Time of Insertion: 08:44 Date Urinary Catheter Removed: 01/16/23 Time Urinary Catheter Discontinued: 05:20 History History History 1 Term 1 0 Miscarriages/Ectopic 0 Living Children 1 Discharge Data Studies Completed and Pending Pending at discharge Category Date Time Status Complete Crossmatch Routine Lab 01/16/23 11:33 Results Rho D Immune Globulin Routine Lab 01/16/23 11:33 Results Type and Screen Routine Lab 01/16/23 11:33 Results Laboratory Results WBC 27.47 10^3/uL (3.29-11.43) H 01/16/23 22:15 RBC 3.56 10^6/uL (3.85-5.65) L 01/16/23 22:15 Hgb 11.00 g/dL (11.27-16.99) L 01/16/23 22:15 Hct 32.4 % (36-47) L 01/16/23 22:15 MCV 91.0 fl (85-98) 01/16/23 22:15 MCH 30.9 pg (27-33) 01/16/23 22:15 MCHC 34.0 g/dL (30-55) 01/16/23 22:15 RDW 13.9 % (12.1-15.1) 01/16/23 22:15 Plt Count 234 10^3/cmm (157-399) 01/16/23 22:15 MPV 10.3 fL (7.4-10.4) 01/16/23 22:15 Neut % (Auto) 73.1 % 01/14/23 20:00 Lymph % (Auto) 18.3 % 01/14/23 20:00 [place] % (Auto) 6.7 % 01/14/23 20:00 Eos % (Auto) 0.4 % 01/14/23 20:00 Baso % (Auto) 0.5 % 01/14/23 20:00 Neut # (Auto) 11.26 10^3/uL (1.8-7.7) H 01/14/23 20:00 Lymph # (Auto) 2.8 10^3/uL (0.8-4.8) 01/14/23 20:00 [place] # (Auto) 1.0 10^3/uL (0.2-0.9) H 01/14/23 20:00 Eos # (Auto) 0.1 10^3/uL (0.0-0.8) 01/14/23 20:00 Baso # (Auto) 0.1 10^3/uL (0.0-0.1) 01/14/23 20:00 Nucleated RBC % (auto) 0 % 01/14/23 20:00 Nucleated RBCs # 0.0 /100WBC 01/14/23 20:00 Sodium 137 mmol/L (136-145) 01/16/23 22:46 Potassium 4.0 mmol/L (3.5-5.1) 01/16/23 22:46 Chloride 108 mmol/L (98-107) H 01/16/23 22:46 Carbon Dioxide 18 mmol/L (22-29) L 01/16/23 22:46 Anion Gap 15.0 (5-19) 01/16/23 22:46 BUN 14 mg/dL (6-20) 01/16/23 22:46 Creatinine 1.1 mg/dL (0.5-0.9) H 01/16/23 22:46 GFR Calculation 58.7 mL/min (90-130) L 01/16/23 22:46 Glucose 87 mg/dL (65-115) 01/16/23 22:46 Calculated Osmolality 284 mOsm/kg (285-295) L 01/16/23 22:46 Calcium 8.0 mg/dL (8.5-10.5) L 01/16/23 22:46 Total Bilirubin 0.3 mg/dL (0.15-1.2) 01/16/23 22:46 AST 19 U/L (0-32) 01/16/23 22:46 ALT 8 U/L (0-33) 01/16/23 22:46 Alkaline Phosphatase 133 U/L (35-105) H 01/16/23 22:46 Total Protein 5.6 g/dL (6.6-8.7) L 01/16/23 22:46 Albumin 2.9 g/dL (3.5-5.2) L 01/16/23 22:46 Globulin 2.7 g/dL (1.3-4.6) 01/16/23 22:46 U Random Total Protein 21 mg/dL 01/16/23 22:46 Urine Creatinine 105 mg/dL (28-217) 01/16/23 22:46 Protein/Creatinin Ratio 0.20 mg/mg CR 01/16/23 22:46 Blood Type O Negative 01/14/23 20:00 Rho(D) Type Negative 01/14/23 20:00 Antibody Screen Negative 01/14/23 20:00 Screen Negative (Negative) 01/16/23 22:15 Vitals Last Vital Signs Temp 97.8 F 01/17/23 09:13 Pulse 82 01/17/23 09:13 Resp 18 01/17/23 09:13 BP 124/70 01/17/23 09:13 Pulse Ox 98 01/17/23 04:00 O2 Del Method Room Air 01/17/23 04:00 Discharge Plan Discharge Patient Disposition: Home Condition: Stable Prescriptions: New docusate sodium 100 mg Capsule 100 mg PO BID Qty: 60 0RF ibuprofen 800 mg Tablet 800 mg PO TID Qty: 90 0RF -U 106.5-1 mg Capsule 1 cap PO DAILY Qty: 90 0RF Continued fluticasone propionate [Allergy Relief (fluticasone)] 50 mcg/actuation spray,suspension 1 spray intranasal DAILY Qty: 16 0RF Rx Instructions: administer into each nostril Discontinued bupropion HCl 75 mg tablet 75 mg PO BID 30 Days Qty: 60 2RF Discharge Orders: Discharge Order (Routine); Ordered 01/17/23 Ordered By: Trinh Morris Discharge Diet: Regular Discharge Activity: Increase activity as tolerated Patient Instructions: Depression (GEN), Caring for Your Baby (DC), Bleeding (DC), Preeclampsia and Eclampsia After Delivery (GEN), Vaginal Delivery (DC), Opioid Safety, OB Home Care Activity Restrictions/Additional Instructions: Pevic rest for 6 weeks. Follow-up with Dr. Morris in clinic at 2 and 6 weeks . Discharge Attestations ONCOLOGY COORDINATOR Time Spent in Discharge Care*: less than 30 min Coding Level of Care Code Acute Code for Chg Fwd Diagnoses Gestational hypertension O13.9 Spontaneous vaginal delivery O80
[2023-01-17 15:01] VITALS: RESP 16
[2023-01-17 15:20] VITALS: BP 123/74; PULSE 64; RESP 16; TEMP 36.7
== END 2023-01-17 15:20 | disposition home or self-care (01) | DRG 806 ==
LOC: OPOB 21:08 → OBGYN 21:08
PROVIDERS: Admitting Provider Family Medicine; PCP Family Medicine; Visit Provider Family Medicine
DX: O13.4 Gestational [pregnancy-induced] hypertension without significant proteinuria, complicating childbirth (principal); O36.0130 Maternal care for anti-D [Rh] antibodies, third trimester, not applicable or unspecified; Z37.0 Single live birth; O48.0 Post-term pregnancy; Z3A.40 40 weeks gestation of pregnancy; O77.0 Labor and delivery complicated by meconium in amniotic fluid; O71.4 Obstetric high vaginal laceration alone; O75.81 Maternal exhaustion complicating labor and delivery
CPT/HCPCS: 36415; 51702; 59025; 59409; 80053; 82570; 84156; 85025; 85027; 85460; 86850; 86900; 90384; 96372; 96374; 96376; 99211; J2405; J2590; J2765; J2795; J7120; J7121

== ENCOUNTER → 2023-11-01 17:22 | Outpatient (BNVA) | payer OTHER, SELFPAY | PROVIDERS: PCP Family Medicine; Visit Provider Nurse Practitioner | DX: S99.921A Unspecified injury of right foot, initial encounter (principal); X58.XXXA Exposure to other specified factors, initial encounter | CPT/HCPCS: 73630 ==

== ENCOUNTER 2024-10-10 11:47 | Outpatient (CLI) | payer OTHER, SELFPAY ==
--- NOTE | 2024-10-10 13:23 | XRR_ITS ---
PROCEDURE INFORMATION: Exam: XR Chest Exam date and time: 10/10/2024 1:29 PM Age: 28 years old Clinical indication: Cough; Additional info: Subacute cough TECHNIQUE: Imaging protocol: Radiologic exam of the chest. Views: 2 views. COMPARISON: No relevant prior studies available. FINDINGS: Lungs: The pulmonary vessels are within normal limits. The lungs are clear. Pleural spaces: No pneumothorax. Heart/Mediastinum: The cardiomediastinal silhouette is within normal limits. Bones/joints: Osseous structure is unremarkable. XR/XR chest 2V* [id number] IMPRESSION: No acute pulmonary finding.
== END 2024-10-10 11:48 | disposition home or self-care (01) ==
PROVIDERS: PCP Family Medicine; Visit Provider Family Medicine
DX: R05.2 Subacute cough (principal)
CPT/HCPCS: 71046

== ENCOUNTER 2024-10-24 10:39 | Outpatient (CLI) | payer OTHER, SELFPAY | END 2024-10-24 10:40 | disposition home or self-care (01) | LOC: SLEEP 10:41 | PROVIDERS: PCP Family Medicine; Visit Provider Family Medicine | DX: G47.19 Other hypersomnia (principal) | CPT/HCPCS: G0399 ==

== ENCOUNTER 2024-12-08 16:54 | Outpatient (CLI) | payer OTHER, SELFPAY ==
--- NOTE | 2024-12-08 17:11 | XRR_ITS ---
PROCEDURE INFORMATION: Exam: XR Right Temporomandibular Joint, Open and Closed Mouth, Unilateral Exam date and time: 12/08/2024 5:20 PM Age: 28 years old Clinical indication: Jaw pain on right side at tmj joint for 1 week, getting worse, , no known injury; Additional info: Jaw pain on RT side TECHNIQUE: Imaging protocol: XR of the right temporomandibular joint, open and closed mouth views. Unilateral exam. Total images: 2 COMPARISON: No relevant prior studies available. FINDINGS: Paranasal sinuses: Well aerated. Bones/joints: Mandibular condyle appropriately positioned within the mandibular fossa on closed mouth view. Appropriate translation anteriorly on open mouth view osseous structures unremarkable. Dental amalgams. Soft tissues: Unremarkable. XR/[place] [id number] IMPRESSION: Mandibular condyle appropriately positioned within the mandibular fossa on closed mouth view. Appropriate translation anteriorly on open mouth view osseous structures unremarkable.
== END 2024-12-08 16:55 | disposition home or self-care (01) ==
PROVIDERS: PCP Family Medicine; Visit Provider Family Medicine
DX: R68.84 Jaw pain (principal)
CPT/HCPCS: 70328